=== PATIENT | female | born 1950 | race Caucasian/White ===

== ENCOUNTER 2017-08-26 08:04 | Day surgery (SDC) | payer OTHER ==
[2017-08-26] VITALS (8 sets, daily range): BP systolic 119–140; BP diastolic 52–69; PULSE 64–76; TEMP 36.7–37.2; O2SAT 93–96; Ht 152.4 cm; Wt 77.5 kg
[~2017-08-26] VITALS: Ht 152.4 cm; Wt 77.5 kg
[2017-08-26] MEDS ORDERED: METF500T5 PO (08:42)
[2017-08-26] MEDS ORDERED: PROP20TA67 PO (08:42)
[2017-08-26] MEDS ORDERED: ATOR-24 PO (08:42)
[2017-08-26] MEDS ORDERED: SITA100T3 PO (08:42)
[2017-08-26] MEDS ORDERED: TORS20TA2 PO (08:42)
[2017-08-26] MEDS ORDERED: CHOL135C6 PO (08:42)
[2017-08-26] MEDS ORDERED: INSDGIPEN SC (08:42)
[2017-08-26] MEDS ORDERED: PANT40TA PO (08:42)
[2017-08-26] MEDS ORDERED: CITA20TA9 PO (08:42)
[2017-08-26] MEDS ORDERED: MECL1CHW PO (08:45)
[2017-08-26] MEDS ORDERED: DICL-201 PO (08:47)
[2017-08-26] MEDS ORDERED: CYCL10TA6 PO (08:48)
[2017-08-26] MEDS ORDERED: CLR10 PO (08:50)
[2017-08-26] MEDS ORDERED: AMLO-110 PO (08:51)
[2017-08-26] MEDS ORDERED: LOSA1TAB PO (08:51)
[2017-08-26 09:08] LABS: PLATELET COUNT 134 K/uL (130-400)
[2017-08-26 09:15] LABS: INR 1.1 (0.9-1.1); PTT PATIENT 25.2 SECONDS (21.0-31.0)
--- NOTE | 2017-08-26 11:10 | Discharge Instructions ---
Discharge Instructions Procedure Procedure Date: Aug 26, 2017. Reason for visit: Fatty Liver. Discharge Discharge Date: Aug 26, 2017. Discharge Diagnosis: s/p core liver biopsy Instructions Activity Recommendations: 1 Day-May resume regular activity, 48 Hours of decreased exertion Return to School/Work: no limitations Recommended Home Diet: No Limitations Provider Instructions: ACTIVITY RECOMMENDATIONS: * Rest today. * Resume regular activity in one day. MEDICATIONS: * May take Tylenol or Ibuprofen as needed for pain. DIET: * Resume previous diet. SPECIAL CARE INSTRUCTIONS: Call your doctor if: * Temperature above 101 degrees F. * Pain not relieved by pain medicine ordered. * Increased drainage or redness from incision. * Notify your doctor with any questions or concerns. Call your doctor or go to the nearest Emergency Department if you experience: * Increased chest pain or shortness of breath. FOLLOW UP VISIT: Follow-up with Referring Physician as scheduled. Allergies Coded Allergies: No Known Allergies (Unverified , 08/26/17) TOMMY [place] Recommendations: Call your doctor if: * Temperature above 101 degrees * Pain not relieved by pain medicine ordered * There is increased drainage or redness from any incision * You have any unanswered questions or concerns. Your Doctors Instructions noted above were prepared by provider Jessee Garcia. Patient Signature Section: Patient Instructions Signature Page Yen Issa Patient (or Guardian) Signature/Date: I have read and understand the instructions given to me by my caregivers. Caregiver/RN/Doctor Signature/Date: The above-named patient and/or guardian has received patient instructions on this date. + Original Patient Signature Page (only) stays with chart. Please make copy for patient.
--- NOTE | 2017-08-26 11:47 | DIAGNOSTIC IMAGING REPORT ---
ULTRASOUND GUIDED CORE RANDOM LIVER BIOPSY CLINICAL HISTORY: Fatty liver. COMPARISON STUDY: No previous studies for comparison. PROCEDURE: The procedure, risks and benefits were discussed with the patient including the risk of bleeding, infection and injury to adjacent structures. The patient agreed to the procedure and informed written consent was obtained. The procedure was performed by Dr. Garcia following a timeout. Sonography demonstrated a single window for biopsy within the lateral segment. There is coarsening of hepatic echotexture and nodularity of the liver surface suggestive of cirrhosis. Skin overlying the lateral segment was prepped and draped in sterile fashion and local anesthesia was achieved with 1% lidocaine. Under direct ultrasound guidance, 2 18-gauge core samples were obtained. The samples were deemed adequate. The patient tolerated the procedure well and no immediate complications were evident. IMPRESSION: 1. Ultrasound guided 18-gauge core random liver biopsy. No immediate complications evident. 2. Coarsening of hepatic echotexture and nodularity of the liver surface suggestive of cirrhosis Electronically signed by: Jessee Garcia M.D. 08/26/2017 11:46 AM Dictated Date/Time: 08/26/2017 11:42 AM
== END 2017-08-26 15:00 | disposition home or self-care (01) ==
LOC: C.ACU 08:04
PROVIDERS: ATTEND Internal Medicine Gastroenterology
DX: K74.0 Hepatic fibrosis (principal)